=== PATIENT | male | born 1955 | race Caucasian/White ===

== ENCOUNTER → 2019-05-10 12:42 | Outpatient (CLI) | payer MEDICARE, BC | END | disposition home or self-care (01) | LOC: D.US 12:42 | PROVIDERS: ATTEND Family Medicine | DX: I73.9 Peripheral vascular disease, unspecified (principal) ==

== ENCOUNTER → 2019-05-17 08:37 | Outpatient (CLI) | payer MEDICARE, BC | END | disposition home or self-care (01) | LOC: D.CT 08:37 | PROVIDERS: ATTEND Family Medicine | DX: I73.9 Peripheral vascular disease, unspecified (principal) ==

== ENCOUNTER 2020-02-08 15:19 | Inpatient (IN) | payer MEDICARE, BC ==
[~2020-02-08] VITALS: Ht 175.3 cm; Wt 93.0 kg
[~2020-02-08 15:19] MED LIST: ACCUPRIL40 MG PO; ASPIRIN81 MG PO; COREG12.5 MG PO; GABAPENTIN300 MG PO; GEMFIBROZIL600 MG PO; GLIPIZIDE10 MG PO; GLUCOPHAGE500 MG PO; LIPITOR20 MG PO; NORVASC5 MG PO; TEMAZEPAM30 MG PO
[2020-02-08 16:17] LABS: BASOPHILS 0.2 % (0-2); EOSINOPHILS 0.2 % (0-7); HEMATOCRIT 37.2 % (42.0-54.0); HEMOGLOBIN 12.9 g/dL (13.5-17.5); IMMATURE GRANULOCYTES 3.4 % (0-5); LYMPHOCYTES 12.1 % (15-50); MCH 31.2 pg (26.0-34.0); MCHC 34.7 g/dL (31.0-37.0); MCV 90.1 fL (80.0-100.0); MEAN PLATELET VOLUME 10.3 fL (7.4-10.4); MONOCYTES 13.6 % (2-11); NEUTROPHILS 70.5 % (40-80); PLATELET COUNT 142 10x3/uL (130-400); RBC 4.13 10x6/uL (4.20-6.10); WBC 4.5 10x3/uL (4.8-10.8)
[2020-02-08 16:39] LABS: ANION GAP 13.4 mmol/L (8-16); CALCIUM 7.9 mg/dL (8.5-10.1); CARBON DIOXIDE 23.4 mmol/L (21.0-32.0); POTASSIUM - SERUM 3.8 mmol/L (3.5-5.1)
[2020-02-08 16:54] LABS: ALBUMIN 2.5 g/dL (3.4-5.0); BILIRUBIN - TOTAL 0.63 mg/dL (0.2-1.3); C-REACTIVE PROTEIN 3.1 mg/dL (0.0-0.9); MAGNESIUM - SERUM 1.6 mg/dL (1.8-2.4); PROTEIN - SERUM 6.5 g/dL (6.4-8.2); TROPONIN-I 0.022 ng/mL (0.000-0.060)
[2020-02-08 17:00] VITALS: BP 105/63
--- NOTE | 2020-02-08 17:20 | NUR ---
NASAL SWAB COLLECTED, LABELED AT BS AND SENT TO LAB
[2020-02-08 18:02] VITALS: BP 115/61
--- NOTE | 2020-02-08 19:13 | NUR ---
BS REPORT TO MEGHANA VILLANUEVA
[2020-02-08 20:00] VITALS: BP 124/71
[2020-02-08 20:04] VITALS: BP 136/71
[2020-02-08 21:22] LABS: BILIRUBIN NEGATIVE (NEGATIVE); KETONE NEGATIVE (NEGATIVE); NITRITE NEGATIVE (NEGATIVE); UROBILINOGEN NORMAL mg/dL (< 2)
[2020-02-08 21:33] LABS: UDS - AMPHET NEGATIVE QUAL (NEGATIVE); UDS - BARB NEGATIVE QUAL (NEGATIVE); UDS - BENZO POSITIVE QUAL (NEGATIVE); UDS - COCAINE NEGATIVE QUAL (NEGATIVE); UDS - OPIATE NEGATIVE QUAL (NEGATIVE); UDS - PCP NEGATIVE QUAL (NEGATIVE); UDS - THC POSITIVE QUAL (NEGATIVE)
[2020-02-08 22:01] VITALS: BP 136/71
--- NOTE | 2020-02-08 23:00 | NUR ---
AMBER DANIEL SISTER [phone] JENSEN DANIEL BROTHER IN LAW [phone]
[2020-02-08] MEDS ORDERED: GABAPENTIN300 MG PO (23:36)
[2020-02-08 23:41] LABS: CKMB 2.3 U/L (0.0-3.6); CREATINE KINASE 177 UL (21-232); TROPONIN-I < 0.017 ng/mL (0.000-0.060)
[2020-02-08 23:46] VITALS: BP 126/60; BMI 30.3
--- NOTE | 2020-02-09 03:05 | NUR ---
ALERT AND ORENTED ARIVED FROM ER [facility] STAFF. AT 2300. IV TO TO RIGHT WRIST WITH NS AT 100ML/HR. 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 NO NEEDS AT THIS TIME. CALL LIGHT AND WATER IN REACH.
[2020-02-09 04:00] VITALS: BP 120/66
[2020-02-09 05:28] LABS: BASOPHILS 0 % (0-2); EOSINOPHILS 0.9 % (0-7); HEMATOCRIT 32.7 % (42.0-54.0); HEMOGLOBIN 11.4 g/dL (13.5-17.5); IMMATURE GRANULOCYTES 3.3 % (0-5); LYMPHOCYTES 17.6 % (15-50); MCH 31.1 pg (26.0-34.0); MCHC 34.9 g/dL (31.0-37.0); MCV 89.3 fL (80.0-100.0); MEAN PLATELET VOLUME 10.5 fL (7.4-10.4); MONOCYTES 16.7 % (2-11); NEUTROPHILS 61.5 % (40-80); PLATELET COUNT 141 10x3/uL (130-400); RBC 3.66 10x6/uL (4.20-6.10)
[2020-02-09 05:37] LABS: APTT 30.3 SECONDS (22.8-39.4); INR 1.01 (0.85-1.17); PROTIME 13.3 SECONDS (11.6-15.0)
[2020-02-09 06:13] LABS: WBC 3.3 10x3/uL (4.8-10.8)
[2020-02-09 06:25] LABS: % SATURATION 16 % (15-55); IRON 41 ug/dl (35-150); TOTAL IRON BIND CAPACITY 246 ug/dl (260-445); UNSAT IRON BIND CAPACITY 205 ug/dl (150-375)
[2020-02-09 06:37] LABS: ANION GAP 13.2 mmol/L (8-16); C-REACTIVE PROTEIN 3.6 mg/dL (0.0-0.9); CALCIUM 7.9 mg/dL (8.5-10.1); CARBON DIOXIDE 23.2 mmol/L (21.0-32.0); MAGNESIUM - SERUM 1.6 mg/dL (1.8-2.4); PHOSPHOROUS 2.1 mg/dL (2.5-4.9); POTASSIUM - SERUM 3.4 mmol/L (3.5-5.1); THYROID STIMULATING HORMONE 0.84 uIU/mL (0.36-3.74)
[2020-02-09 06:38] LABS: CREATININE - SERUM 1.4 mg/dL (0.6-1.3)
[2020-02-09 09:26] LABS: ERYTHROCYTE SEDIMENTATION RATE 68 mm/hr (0-20)
[2020-02-09 09:47] VITALS: BP 110/62
--- NOTE | 2020-02-09 10:20 | NUR ---
Rehab Prescreening Consult recieved and the chart has been reviewed. He is a good candidate for the ARU when his work up is completed. He has a Neurology consult and a PT consult pending. Rehab will follow. Joyce Hardin RN Clinical Liaison, Rehab
[2020-02-09 11:57] VITALS: BP 124/72
[2020-02-09 14:55] VITALS: BMI 30.2
[2020-02-09 18:59] VITALS: BP 130/50
[2020-02-09 20:00] VITALS: BP 126/56
--- NOTE | 2020-02-10 03:46 | NUR ---
ALERT AND ORENTDED ABLE TO VOICE NEEDS AND WANTS TO STAFF. IV TO RIGHT WRIST WITH NS PER ORDERS. SCD'S IN PLACE. NO S\S OF DISTRESS. CALL LIGHT AND WATER IN REACH.
[2020-02-10 04:00] VITALS: BP 147/74
[2020-02-10 06:54] LABS: ANION GAP 12.1 mmol/L (8-16); CALCIUM 7.6 mg/dL (8.5-10.1); CARBON DIOXIDE 22.4 mmol/L (21.0-32.0); CREATININE - SERUM 1.1 mg/dL (0.6-1.3); MAGNESIUM - SERUM 1.5 mg/dL (1.8-2.4); PHOSPHOROUS 2.2 mg/dL (2.5-4.9); POTASSIUM - SERUM 3.5 mmol/L (3.5-5.1)
[2020-02-10 07:11] LABS: HEMATOCRIT 29.9 % (42.0-54.0); HEMOGLOBIN 10.6 g/dL (13.5-17.5); MCH 31.5 pg (26.0-34.0); MCHC 35.5 g/dL (31.0-37.0); MEAN PLATELET VOLUME 10.2 fL (7.4-10.4); PLATELET COUNT 135 10x3/uL (130-400); RBC 3.36 10x6/uL (4.20-6.10); RDW 12.8 % (11.5-14.5); WBC 2.8 10x3/uL (4.8-10.8)
[2020-02-10 08:00] VITALS: BP 132/67
[2020-02-10 08:13] LABS: LYMPHOCYTES 10 % (15-50); NEUTROPHILS 86 % (40-80); PLATELET ESTIMATE NORMAL
[2020-02-10 10:19] VITALS: Ht 175.3 cm; Wt 93.0 kg
[2020-02-10 14:13] VITALS: BP 134/68
[2020-02-10 16:44] VITALS: BP 132/61
[2020-02-10 20:00] VITALS: BP 132/78
[2020-02-11 04:00] VITALS: BP 119/65
[2020-02-11 06:28] LABS: BASOPHILS 0 % (0-2); EOSINOPHILS 1.1 % (0-7); HEMOGLOBIN 10.6 g/dL (13.5-17.5); IMMATURE GRANULOCYTES 2.2 % (0-5); LYMPHOCYTES 21.4 % (15-50); MCHC 34.2 g/dL (31.0-37.0); MCV 90.6 fL (80.0-100.0); MEAN PLATELET VOLUME 10.4 fL (7.4-10.4); NEUTROPHILS 58.3 % (40-80); PLATELET COUNT 147 10x3/uL (130-400); RBC 3.42 10x6/uL (4.20-6.10)
[2020-02-11 06:36] LABS: WBC 2.8 10x3/uL (4.8-10.8)
[2020-02-11 06:39] LABS: ANION GAP 12.8 mmol/L (8-16); CALCIUM 8.2 mg/dL (8.5-10.1); CARBON DIOXIDE 24.2 mmol/L (21.0-32.0); CREATININE - SERUM 1.1 mg/dL (0.6-1.3); MAGNESIUM - SERUM 1.6 mg/dL (1.8-2.4); PHOSPHOROUS 2.6 mg/dL (2.5-4.9)
--- NOTE | 2020-02-11 08:00 | NUR ---
PT RESTING IN BED WITH FAMILY AT BEDSIDE. NO ACUTE DISTRESS NOTED AT THIS TIME. PT FOUND TO HAVE PULLED IV OUT. 20G RESITED TO RIGHT FOREARM X 1 STICK, GOOD BLOOD RETURN, EASILY FLUSHED. DENIES PAIN AT THIS TIME. CL WITHIN REACH. ENCOURAGED TO CALL WITH NEEDS. CONTINUE POC
[2020-02-11 10:41] VITALS: BP 135/64
[2020-02-11] MEDS ORDERED: VIBRAMYCIN 100100 MG PO (11:44)
[2020-02-11] MEDS ORDERED: OMNICEF300 MG PO (11:45)
[2020-02-11] MEDS ORDERED: LOVENOX40 MG/0.4 SC (11:45)
[2020-02-11] MEDS ORDERED: HUMALOG 30100 UNITS/ SC (11:45)
[2020-02-11] MEDS ORDERED: ALBUTEROL2.5 MG/3 M UPD (11:45)
[2020-02-11 14:11] LABS: EHRLICHIA CHAFF IGG Negative (Neg:<1:64); EHRLICHIA CHAFF IGM Negative (Neg:<1:20); HGE IGG TITER Negative (Neg:<1:64); HGE IGM TITER Negative (Neg:<1:20)
--- NOTE | 2020-02-11 14:25 | MORECARE ---
CASE MANAGEMENT DISCHARGE SUMMARY PATIENT: ANASTASIA CALDERON JR UNIT: [id number] ADM DATE: 02/08/20 AGE: 64 : 54 SEX: M ROOM/BED: D.2233 AUTHOR: LOIDA MAYER PHYSICIAN: REFERRING PHYSICIAN: ANTONIO GREEN MD DATE OF SERVICE: 02/11/20 Discharge Plan Patient Name: ANASTASIA CALDERON Facility: [facility]:[place] : 1955 Planned Disposition: Anticipated Discharge Date: Discharge Date: Expected LOS: Initial Reviewer: [email or web address] Initial Review Date: 02/08/2020 Generated: 02/11/20 3:24 pm Comments DCP- Discharge Planning Updated by [email or web address]: Victoria Ngo on 02/11/20 1:[address] Patient Name: ANASTASIA CALDERON Admission Status: ER Accout number: [id number] Admission Date: 02-08-2020 : 1955 Admission Diagnosis:POSTVIRAL FATIGUE SYNDROME Attending: ANTONIO GREEN Current LOS: 3 Anticipated DC Date: Planned Disposition: Primary Insurance: MEDICARE A & B Discharge Planning Comments: CM met with patient at bedside after explaining CM role and obtaining verbal consent. CM discussed availability / needs of home health, REHAB and medical equipment. PATIENT INTERESTED IN [facility] AT [facility]. IMM SIGNED AND COPY ON CHART. ANTICIPATE DC TO [facility] TODAY. CM TO FOLLOW AND ASSIST NEEDED. Him Manager: Victoria Ngo Coverage Notice Reviewer: [id number] - Victoria Ngo Notice Issued Date-Time: 02/11/2020 14:15 Notice Type: IM Discharge Notice Notice Delivered To: Relationship to Patient: Water Pump Assembler Name: Delivery Method: - Yazmin Days: Prior Verbal Notification: Recipient Understood Notice: Recipient Signature: Med Rec Note Co-signed by Attending: Coverage Notice Comment: Patient Name: ANASTASIA CALDERON Page [phone] at 1425 All edits/amendments must be made on the electronic document DICTATION DATE: 02/11/201423 OVERHEAD CRANE OPERATOR: OMAR 02/11/20 142 RPT#: [id number] DC DATE: STATUS: ADM IN [facility] [address] [place] [address] END OF REPORT
[2020-02-11 17:31] VITALS: BP 124/69
--- NOTE | 2020-02-11 18:03 | NUR ---
OT NOTE: (DOS 02/10/2020) PT COMPLETED SUPINE TO SIT WITH CGA. PT COMPLETED EOB SITTING WITH SBA. PT COMPLETED SIT TO STAND WITH CGA. PT COMPLETED TOILETING WITH SBA-CGA. [phone] THANK YOU,DAXA MENDOZA
--- NOTE | 2020-02-11 19:45 | NUR ---
OT NOTE: PT COMPLETED ADL MOB WITH RW REQUIRED SBA/CGA. PT COMPLETED SITTING BALANCE AXS WHILE ATIYA SOCKS WITH SBA. PT SISTER REPORTED PT HAD TAKEN SHOWER WITH SETUP. [phone] THANK YOU,DAXA MENDOZA
--- NOTE | 2020-02-14 09:07 | MORECARE ---
CASE MANAGEMENT DISCHARGE SUMMARY PATIENT: ANASTASIA CALDERON JR UNIT: [id number] ADM DATE: 02/08/20 AGE: 64 : 54 SEX: M ROOM/BED: D.2233 AUTHOR: LOIDA MAYER PHYSICIAN: REFERRING PHYSICIAN: ANTONIO GREEN MD DATE OF SERVICE: 02/14/20 Discharge Plan Patient Name: ANASTASIA CALDERON Facility: [facility]:[place] : 1955 Planned Disposition: Anticipated Discharge Date: Discharge Date: 02/11/2020 Expected LOS: Initial Reviewer: [email or web address] Initial Review Date: 02/08/2020 Generated: 02/14/20 10:06 am Comments DCP- Discharge Planning Updated by [email or web address]: Victoria Ngo on 02/11/20 1:[address] Patient Name: ANASTASIA CALDERON Admission Status: ER Accout number: [id number] Admission Date: 02-08-2020 : 1955 Admission Diagnosis:POSTVIRAL FATIGUE SYNDROME Attending: ANTONIO GREEN Current LOS: 3 Anticipated DC Date: Planned Disposition: Primary Insurance: MEDICARE A & B Discharge Planning Comments: CM met with patient at bedside after explaining CM role and obtaining verbal consent. CM discussed availability / needs of home health, REHAB and medical equipment. PATIENT INTERESTED IN [facility] AT [facility]. IMM SIGNED AND COPY ON CHART. ANTICIPATE DC TO [facility] TODAY. CM TO FOLLOW AND ASSIST NEEDED. Security Sme: Victoria Ngo Coverage Notice Reviewer: [id number] - Victoria Ngo Notice Issued Date-Time: 02/11/2020 14:15 Notice Type: IM Discharge Notice Notice Delivered To: Relationship to Patient: Last Scourer Name: Delivery Method: - Yazmin Days: Prior Verbal Notification: Recipient Understood Notice: Recipient Signature: Med Rec Note Co-signed by Attending: Coverage Notice Comment: Last DP export: 02/11/20 1:25 Patient Name: ANASTASIA CALDERON Page [phone] at 0907 All edits/amendments must be made on the electronic document DICTATION DATE: 02/14/20905 TIMBER MANAGEMENT TECHNICIAN: OMAR 02/14/20905 RPT#: [id number] DC DATE:02/11/20 STATUS: DIS IN [facility] [address] [facility] [place] [address] END OF REPORT
[2020-02-14 17:08] LABS: RMSF IGM 0.14 index (0.00-0.89)
[2020-02-15 16:09] LABS: F. TULARENSIS - IGG Negative (Negative); F. TULARENSIS - IGM Negative (Negative)
== END 2020-02-11 18:07 | DRG 948 ==
LOC: D.ER 15:19 → D.EDHOLD 17:55 → D.MS 17:55
PROVIDERS: Emergency Medicine; Family Medicine; ADMIT Family Medicine; ATTEND Family Medicine
DX: G93.3 Postviral and related fatigue syndromes (principal); E87.1 Hypo-osmolality and hyponatremia; N17.9 Acute kidney failure, unspecified; G35 Multiple sclerosis; E11.65 Type 2 diabetes mellitus with hyperglycemia; D64.9 Anemia, unspecified; I10 Essential (primary) hypertension; E78.5 Hyperlipidemia, unspecified; I25.10 Atherosclerotic heart disease of native coronary artery without angina pectoris; G72.89 Other specified myopathies; M19.90 Unspecified osteoarthritis, unspecified site; Z91.14 Patient's other noncompliance with medication regimen; H54.61 Unqualified visual loss, right eye, normal vision left eye

== ENCOUNTER 2020-02-11 16:50 | Inpatient (IN) | payer MEDICARE, BC ==
[~2020-02-11] VITALS: Ht 175.3 cm; Wt 93.0 kg
[~2020-02-11 16:50] MED LIST changes: +ALBUTEROL2.5 MG/3 M UPD; +HUMALOG 30100 UNITS/ SC; +LOVENOX40 MG/0.4 SC; +OMNICEF300 MG PO; +VIBRAMYCIN 100100 MG PO
[2020-02-11 18:18] VITALS: BP 123/80; BMI 30.3
--- NOTE | 2020-02-11 18:27 | NUR ---
PT RESTING IN BED WITH EYES OPEN CALL LIGHT IN REACH NO PROBLEMS WILL MONITER
[2020-02-11 20:03] VITALS: BP 150/82
--- NOTE | 2020-02-11 20:15 | NUR ---
PATIENT RECEIVED SITTING UP IN BED. ASSESSMENT & VITAL SIGNS DONE. NO C/O PAIN OR DISTRESS AT THIS TIME. BED LOW. BEDSIDE TABLE WITHIN REACH. ADMISSION PAPERS SIGNED. MENU FILLED OUT. ALARM ON. CALL LIGHT WITHIN REACH. WILL CONTINUE TO MONITOR.
--- NOTE | 2020-02-12 02:43 | NUR ---
EYES CLOSED. RESPIRATIONS 18 & EVEN. BED LOW. ALARM ON. CALL LIGHT WITHIN REACH. WILL CONTINUE TO WILLIAM.
--- NOTE | 2020-02-12 03:53 | NUR ---
PATIENT STANDBY ASSIST TO BATHRROM. VOID ONLY. SLOW STEADY GAIT. BED LOW. CALL LIGHT WITHIN REACH. WILL CONTINUE TO MONITOR.
--- NOTE | 2020-02-12 07:40 | NUR ---
HE IS ALERT, WATCHING TV THIS MORNING. THE CALL LIGHT IS WTIHIN REACH.
[2020-02-12 08:15] VITALS: BP 152/68
[2020-02-12 08:31] LABS: HEMATOCRIT 32.8 % (42.0-54.0); HEMOGLOBIN 11.1 g/dL (13.5-17.5); MCH 30.9 pg (26.0-34.0); MCHC 33.8 g/dL (31.0-37.0); MCV 91.4 fL (80.0-100.0); PLATELET COUNT 164 10x3/uL (130-400); RBC 3.59 10x6/uL (4.20-6.10); RDW 13.1 % (11.5-14.5); WBC 2.6 10x3/uL (4.8-10.8)
[2020-02-12 08:41] LABS: ANION GAP 12.1 mmol/L (8-16); CALCIUM 8.4 mg/dL (8.5-10.1); CARBON DIOXIDE 26.3 mmol/L (21.0-32.0); CREATININE - SERUM 1.1 mg/dL (0.6-1.3); POTASSIUM - SERUM 4.4 mmol/L (3.5-5.1)
[2020-02-12 10:13] LABS: LYMPHOCYTES 33 % (15-50); MONOCYTES 2 % (2-11); NEUTROPHILS 61 % (40-80); PLATELET ESTIMATE NORMAL
[2020-02-12 12:39] VITALS: Ht 175.3 cm; Wt 93.0 kg
[2020-02-12 13:53] LABS: BASOPHILS 0.4 % (0-2); EOSINOPHILS 1.6 % (0-7); HEMOGLOBIN 10.3 g/dL (13.5-17.5); IMMATURE GRANULOCYTES 2.8 % (0-5); LYMPHOCYTES 24.1 % (15-50); MCH 31.7 pg (26.0-34.0); MCHC 34.3 g/dL (31.0-37.0); MCV 92.3 fL (80.0-100.0); MONOCYTES 9.5 % (2-11); NEUTROPHILS 61.6 % (40-80); PLATELET COUNT 192 10x3/uL (130-400); RBC 3.25 10x6/uL (4.20-6.10); RDW 13.1 % (11.5-14.5); WBC 2.5 10x3/uL (4.8-10.8)
[2020-02-12 14:10] LABS: ANION GAP 13.3 mmol/L (8-16); CALCIUM 8.4 mg/dL (8.5-10.1); CARBON DIOXIDE 26.8 mmol/L (21.0-32.0); POTASSIUM - SERUM 4.1 mmol/L (3.5-5.1)
[2020-02-12 14:11] LABS: CREATININE - SERUM 1.5 mg/dL (0.6-1.3)
[2020-02-12 19:58] VITALS: BP 104/72
--- NOTE | 2020-02-12 20:30 | NUR ---
PATIENT RECEIVED SITTING UP IN BED WATCHING TV. SISTER AT BEDSIDE. ASSESSMENT & VITAL SIGNS DONE. NO C/O PAIN OR DISTRESS. BED LOW. CALL LIGHT WITHIN REACH. WILL CONTINUE T0 MONITOR.
--- NOTE | 2020-02-13 01:38 | NUR ---
PATIENT EYES CLOSED. RESPIRATIONS 18 & EVEN. BED LOW. CALL LIGHT WITHIN REACH. WILL CONTINUE TO MONITOR.
[2020-02-13 08:08] VITALS: BP 127/74
--- NOTE | 2020-02-13 08:30 | NUR ---
PATIENT SITTING UP IN WHEELCHAIR TO EAT BREAKFAST. IN ROOM VISITING. PATIENT IS ALERT/ORIENT. CALL LIGHT WITHIN REACH. VOICES NO NEEDS AT THIS TIME. WILL CONTINUE WITH PLAN OF CARE
--- NOTE | 2020-02-13 14:38 | NUR ---
I have reviewed this patient and I concur with the Shift Assessment completed by the Licensed Practical Nurse today this shift.
--- NOTE | 2020-02-13 15:40 | NUR ---
PATIENT IN BED WATCHING T.V. VOICES NO NEEDS AT THIS TIME. CALL LIGHT WITHIN REACH
[2020-02-13 19:23] VITALS: BP 116/53
--- NOTE | 2020-02-13 20:15 | NUR ---
PATIENT RECEIVED SITTING UP IN BED WATCHING TV. ASSESSMENT & VITAL SIGNS DONE. NO C/O PAIN OR DISTRESS. BED LOW. CALL LIGHT WITHIN REACH. WILL CONTINUE TO MONITOR.
--- NOTE | 2020-02-14 06:00 | NUR ---
I have reviewed this patient and I concur with the Shift Assessment completed by the Licensed Practical Nurse today this shift.
[2020-02-14 07:41] VITALS: BP 133/55
--- NOTE | 2020-02-14 08:00 | NUR ---
PT RESTING IN BED WITH EYES OPEN CALL LIGHT IN REACH NO PROBLEMS WILL MONITER
--- NOTE | 2020-02-14 18:20 | NUR ---
PT RESTING IN BED WATCHING TV CALL LIGHT IN REACH WILL MONITER
[2020-02-14 21:19] VITALS: BP 156/81
--- NOTE | 2020-02-14 23:27 | NUR ---
PT IN BED WATCHING TV, NO IMMEDIATE NEEDS NOTED, RESPIRATIONS EVEN/UNLABORED, SAFETY PRECAUTIONS IN PLACE, FLUIDS/CALL LIGHT WITHIN REACH, SPOUSE AT BEDSIDE
--- NOTE | 2020-02-15 07:29 | NUR ---
PT RESTING IN BED WITH EYES OPEN CALL LIGHT IN REACH NO PROBLEMS WILL MONITER
[2020-02-15 07:43] VITALS: BP 122/56
--- NOTE | 2020-02-15 12:16 | NUR ---
PATIENT ADMITTED TO REHAB FROM ACUTE FLOOR. HIS PCP IS DR. MATAMOROS. DISCHARGE PLANS ARE FOR HIM TO RETURN TO HIS HOME. WILL CONTINUE TO FOLLOW WITH PATIENT.
--- NOTE | 2020-02-15 19:35 | NUR ---
PT IN BED ASLEEP, RESPIRATIONS EVEN/UNLABORED, NO IMMEDIATE NEEDS NOTED, SAFETY PRECAUTIONS IN PLACE, FLUIDS/CALL LIGHT WITHIN REACH, PT AROUSES EASILY TO VOICE
[2020-02-15 20:20] VITALS: BP 122/50
[2020-02-16 07:30] LABS: ANION GAP 13.5 mmol/L (8-16); CALCIUM 8.3 mg/dL (8.5-10.1); CREATININE - SERUM 1.1 mg/dL (0.6-1.3); POTASSIUM - SERUM 4.5 mmol/L (3.5-5.1)
[2020-02-16 07:32] LABS: BASOPHILS 0 % (0-2); EOSINOPHILS 4.5 % (0-7); HEMATOCRIT 31.5 % (42.0-54.0); HEMOGLOBIN 10.4 g/dL (13.5-17.5); IMMATURE GRANULOCYTES 1.9 % (0-5); LYMPHOCYTES 33.4 % (15-50); MCH 30.8 pg (26.0-34.0); MCV 93.2 fL (80.0-100.0); MEAN PLATELET VOLUME 9.7 fL (7.4-10.4); MONOCYTES 10.9 % (2-11); NEUTROPHILS 49.3 % (40-80); PLATELET COUNT 192 10x3/uL (130-400); RBC 3.38 10x6/uL (4.20-6.10); RDW 13.2 % (11.5-14.5); WBC 3.1 10x3/uL (4.8-10.8)
[2020-02-16 07:46] VITALS: BP 129/47
[2020-02-16] MEDS ORDERED: VIBRAMYCIN 100100 MG PO (08:36)
[2020-02-16] MEDS ORDERED: OMNICEF300 MG PO (08:36)
--- NOTE | 2020-02-16 08:38 | RHP ---
PATIENT: ANASTASIA CALDERON JR MEDICAL RECORD: [id number] ACCOUNT: [id number] LOCATION:[facility] D.1110 : 53 ADMISSION DATE: 02/11/20 REHABILITATION HISTORY AND PHYSICAL EXAMINATION POST ADMISSION PHYSICIAN EXAMINATION ADMITTING DIAGNOSIS: Disuse myopathy. HISTORY OF PRESENT ILLNESS: The patient is a 64-year-old gentleman who presented to the ER from his local doctor's office with generalized weakness and essentially a failure to thrive type presentation. The patient was noted to have a blood sugar of 425 and he looked pretty ill. The patient's sister stated it had been going on for a couple of weeks. He had a 3-4 day history of abdominal pain, nausea and vomiting. The patient was seen and evaluated, had a CT of his head and did not show anything acute at that time and an MRI was done on 02/09/2020 with extensive metal artifact from the epicenter adjacent to the left mandible, presumably from the baby apparently, demonstrated on the CT of the head. It did obscure the left frontal lobes. There was; however, scattered areas of increased signal in the subcortical and deep white matter of the frontal and parietal lobes bilaterally, which appeared to be old infarcts. The patient was seen by cardiology, he has got a history of stent placement. He had an echo done. The patient had a carotid Doppler done, which showed some mild plaquing, but no flow limiting stenosis. Currently, he is mod to max assist for ADLs and mobility. He has had prolonged immobility, progressive generalized weakness, especially in his lower extremities affecting his tolerance to PT. He is very fatigued, has limited flexion, extension, proximal muscle strength is decreased. He is mod to max assist for ADLs and mod to max assist for sit to stand and bed to chair. He definitely will benefit from inpatient rehab to get back to his prior level of functioning and hopefully get him back home. COMORBIDITIES: Include a weakness post-viral syndrome, multiple sclerosis, hyponatremia, acute kidney injury, hypertension, dyslipidemia, normocytic anemia, diabetes with hyperglycemia and osteoarthritis. PAST MEDICAL HISTORY: Significant for neuropathy and multiple sclerosis, got a history of hypertension, coronary artery disease, dyslipidemia and arthritis. PAST SURGICAL HISTORY: Includes a skull surgery in the past. He has had a PTCA, stent placement and knee surgery. ALLERGIES: No known drug allergies. CURRENT MEDICATIONS: He is on Lovenox 40 mg subQ daily. He is on aspirin chewable 81 mg daily. He is on metformin 1000 mg b.i.d. with meals, carvedilol 12.5 mg b.i.d., Lopid 600 mg b.i.d. with meals, glipizide 10 mg b.i.d. with meals. He is on an electrolyte replacement protocol at this time. He is on polyethylene glycol 17 grams in 8 ounces of water daily. He is on Accupril 40 mg b.i.d. He is on a low-resistant sliding scale of insulin, Neurontin 300 mg q.i.d. He is on doxycycline 100 mg b.i.d., Omnicef 300 mg every 12 hours, Lipitor 20 mg at bedtime, amlodipine 5 mg b.i.d. He is on glucose replacement protocol, temazepam 30 mg at bedtime p.r.n. and Ventolin updrafts. HABITS: No alcohol or tobacco use. FAMILY HISTORY: Noncontributory. HISTORY AND PHYSICAL [id number] ANASTASIA CALDERON SOCIAL HISTORY: The patient hopes to return back home and get back to his prior level of functioning. REVIEW OF SYSTEMS: GENERAL: Does complain of weakness and fatigue. HEENT: Denies cold, cough, or congestion. CARDIOVASCULAR: Denies any chest pain. PHYSICAL EXAMINATION: VITAL SIGNS: Stable, afebrile. GENERAL: A somewhat obese gentleman in no acute distress upon exam. HEENT: Normocephalic and atraumatic. Mucosa moist. NECK: Supple. No lymphadenopathy. LUNGS: Clear in upper [place]. No wheezing or rales. HEART: Regular rate and rhythm. No murmurs, rubs or gallops. ABDOMEN: Soft, benign and nondistended. Positive bowel sounds times 4. EXTREMITIES: No clubbing, cyanosis or edema. NEUROLOGIC: Does have diffuse weakness in upper and lower extremities. LABORATORY DATA: His white count is noted to be 2.6. His H&H are 11 and 32.8, platelet count was noted to be 164. Sodium 135, potassium 4.4, BUN and creatinine of 11 and 1.0 and blood sugar is noted to be 145. ASSESSMENT: This is a 64-year-old gentleman admitted to the rehab with a working diagnosis of disuse myopathy. The patient has potential to make improvement. We instituted the following multiple disciplinary therapies including, but not limited to physical, occupational, respiratory, speech, nutritional services, prosthetics and orthotics. Given his complex medical condition and risks for more complications, rehabilitation services cannot be provided at a low level of care such as custodial facility. PLAN: [facility] following [facility]: A. Physical therapy to improve gait, all transfer skills and bed mobility to a modified independent level. B. Occupational therapy to improve activities of daily living. C. Case management to help with discharge planning and placement options. D. Nutrition to assist with nutritional needs. E. Rehabilitation nursing to assist in monitoring the patient's underlying medical conditions and to assist with bowel or bladder management. 2. The patient's current medication and medical care will be continued. 3. Placed on standard fall precautions. 4. The patient's estimated length of stay is approximately 7-10 days. 5. We will discuss this patient during care team staff meeting this week. We will watch for any signs of worsening of his MS. We will have neurology to see if needed and I will see again in the a.m. on Friday. TRANSINT:[id number] Voice Confirmation ID: [id number] DOCUMENT ID: [id number] ARIEL notes whether there has been none or any medical/functional change since admission: - HISTORY AND PHYSICAL [id number] ANASTASIA CALDERON attests patient continues to be appropriate for IRF: - ERICA FU MD at 0838 CC: [id number] DICTATION DATE: 02/12/20 1247 SHRIMP PEELER: 02/12/20 1439 ADM IN [facility] [address] [id number]
--- NOTE | 2020-02-16 11:41 | NUR ---
PATIENT DISCHARGING HOME TODAY WITH FAMILY. PATIENT DECLINES HOME HEALTH AND ANY NEW DME NEEDS AT THIS TIME. VIJAY SIGNED, IMM SERVED AND EXPLAINED, ONE GIVEN TO PATIENT AND ONE FILED IN CHART.DR. MATAMOROS 02/23/20 @ 8:45, DR. MEANS/NAHUM 03/08/20 @ 1:45, DR. COLLIER 04/10/20 @ 1:45. DC INSTRUCTIONS FAXED TO PCP AND REVIEWED WITH PATIENT PER PRIMARY NURSE.
--- NOTE | 2020-02-16 12:52 | NUR ---
Nutrition Follow-up: Diet: Diabetic PO intake: 100% x last 12 meals, he reports a good appetite Last BM: 02/16/20. Wt: 205# (02/12/20) Meds noted: metformin, glipizide, SSI. Labs noted: BUN 19(H), Glu 214(H). Recommend continue current diet. RD following.
== END 2020-02-16 16:07 | disposition home or self-care (01) | DRG 92 ==
LOC: D.REHAB 16:50
PROVIDERS: ADMIT Emergency Medicine; ATTEND Emergency Medicine
DX: G72.89 Other specified myopathies (principal); N17.9 Acute kidney failure, unspecified; E87.1 Hypo-osmolality and hyponatremia; R53.1 Weakness; G93.3 Postviral and related fatigue syndromes; I05.0 Rheumatic mitral stenosis; D64.9 Anemia, unspecified; E11.65 Type 2 diabetes mellitus with hyperglycemia; M19.90 Unspecified osteoarthritis, unspecified site; E78.5 Hyperlipidemia, unspecified; G35 Multiple sclerosis; I10 Essential (primary) hypertension; I25.10 Atherosclerotic heart disease of native coronary artery without angina pectoris

== ENCOUNTER → 2020-08-16 10:59 | Outpatient (CLI) | payer MEDICARE, BC ==
[2020-02-12 12:39] VITALS: BMI 30.2
== END | disposition home or self-care (01) ==
LOC: D.US 10:59
PROVIDERS: ATTEND Thoracic Surgery (Cardiothoracic Vascular Surgery)
DX: I70.203 Unspecified atherosclerosis of native arteries of extremities, bilateral legs (principal); I73.9 Peripheral vascular disease, unspecified